=== PATIENT | female | born 2005 | race Two or more races ===

== ENCOUNTER 2023-07-28 16:39 | Emergency (ER) | payer OTHER ==
[~2023-07-28] VITALS: Ht 154.9 cm; Wt 59.0 kg
[2023-07-28 17:56] LABS: PH,URINE 7.5 (5.0-8.0); URINE APPEARANCE Clear; URINE BILIRRUBIN Negative (NEGATIVE); URINE BLOOD Negative; URINE COLOR Yellow; URINE GLUCOSE Negative (NEGATIVE); URINE LEUKOCYTE Moderate; URINE NITRATE Negative; URINE PROTEIN Negative (NEGATIVE)
[2023-07-28 17:57] LABS: URINE EPITHELIAL CELLS 3.4 uL (0.0-38.8); URINE RBC 6.1 uL (0.0-20.8); URINE WBC 155.3 uL (0.0-23.2)
== END 2023-07-28 20:06 | disposition home or self-care (01) ==
LOC: EMR PED 16:39 → ER 16:39 → EMR PED 17:06
PROVIDERS: Emergency Medicine Pediatric Emergency Medicine
DX: R30.0 Dysuria (principal)